=== PATIENT | female | born 1985 | race African-American/Black ===

== ENCOUNTER 2019-06-13 15:21 | Emergency (ER) | payer MEDICAID, OTHER ==
[~2019-06-13] VITALS: Ht 160 cm; Wt 82.0 kg
[2019-06-13] MEDS ORDERED: ACETAMINOPHEN 325MG TABLET PO STA (18:53)
[2019-06-13 21:36] VITALS: BP 142/83
== END 2019-06-13 21:36 | disposition home or self-care (01) ==
LOC: ER 15:21
DX: R10.30 Lower abdominal pain, unspecified (principal)
CPT/HCPCS: 99283